=== PATIENT | female | born 1985 ===

== ENCOUNTER 2017-05-01 17:34 | Inpatient (IN) | payer SELFPAY ==
[2017-05-01 17:56] VITALS: BMI 27.3
[2017-05-01] MEDS ORDERED: Oxytocin 30 UNIT 30 UNITS/500 ML BAG IV SCH (18:00)
[2017-05-01] MEDS ORDERED: Lactated Ringer's 1,000 ML IV SCH (18:00)
[2017-05-01 18:37] LABS: BASO % 0.3 % (0.0-2.0); EOS % 0.5 % (0.0-4.0); HEMOGLOBIN 13.3 g/dL (11.0-16.0); MEAN CELL VOLUME 90.5 fL (81.0-99.0); MEAN CORPUSCULAR HGB CONC 34.3 g/dL (33.0-37.0); MEAN PLATELET VOLUME 11.1 fL (7.2-11.7); MONO # 0.4 K/uL (0.0-0.8); MONO % 5.5 % (0.0-10.0); NEUT # 5.6 K/uL (1.8-7.0); NEUT % 68.7 % (50.0-75.0); NRBC % 0.1 % (0.0-2.0); RBC 4.28 Mil/uL (3.80-5.20); RED CELL DISTRIBUTION WIDTH 13.5 % (11.5-14.5); WHITE BLOOD COUNT 8.1 K/uL (4.8-10.8)
[2017-05-01 18:43] LABS: SQUAMOUS EPITHIAL 3 /hpf (0-5); URINE BACTERIA RARE (<OCC); URINE BILIRUBIN NEGATIVE (NEGATIVE); URINE BLOOD 2+ (NEGATIVE); URINE CLARITY Clear (Clear); URINE COLOR Yellow (YELLOW); URINE GLUCOSE (UA) NORMAL (Normal); URINE LEUKOCYTE ESTERASE 1+ Leu/uL (Negative); URINE NITRATE NEGATIVE (NEGATIVE); URINE PROTEIN NEGATIVE (NEGATIVE); URINE UROBILINOGEN NORMAL mg/dL (0.2-1.0)
[2017-05-01 18:50] LABS: ALB/GLOB RATIO 0.8 (1.0-2.1); ALBUMIN 2.9 g/dL (3.5-5.0); ALT/SGPT 22 U/L (9-52); AST/SGOT 22 U/L (14-36); BLOOD UREA NITROGEN 5 mg/dL (7-17); CALCIUM 8.1 mg/dl (8.6-10.4); GFR AFRICAN-AMERICAN > 60; GFR NON-AFRICAN AMERICAN > 60
[2017-05-01] MEDS ORDERED: Oxytocin 20 units in LR 2,000 ML IV ONE (22:54)
[2017-05-01] MEDS ORDERED: Lidocaine 2% Inj (20ml) ONE (23:22)
--- NOTE | 2017-05-02 07:54 | OBPPN ---
Datetime: 05/02/2017 07:49 PP Pain Prov: Within normal limits PP Nausea Prov: Denies PP Flatus Prov: Yes PP BM Prov: No PP Heart Prov: Normal PP Lungs Prov: Normal PP Abdomen/Uterus Prov: Normal PP CVA Tenderness Prov: Normal PP Extremities Prov: Normal PP Impression Prov: Normal progression PP Plan Prov: Continue present management PP Progress Note Prov: S-patient reports that her pain is well controlled she denies nausea, vomiting, headache. chest pain,shortness of breath ambulating and voiding without difficulty O-VSS Afebrile Fundus firm and below umbilicus extremities no calf tenderness A/P Patient s/p vaginal delivery PPD1 doing well -continue routine PP care Vital Signs Provider PP: Reviewed; Within Normal Limits
[2017-05-02 08:02] VITALS: RESP 18
[2017-05-02 08:12] LABS: BASO % 0.2 % (0.0-2.0); EOS % 0.1 % (0.0-4.0); HEMOGLOBIN 12.2 g/dL (11.0-16.0); LYMPH # 1.9 K/uL (1.0-4.3); LYMPH % 16.6 % (20.0-40.0); MEAN CELL VOLUME 89.9 fL (81.0-99.0); MEAN CORPUSCULAR HEMOGLOBIN 30.3 pg (27.0-31.0); MEAN CORPUSCULAR HGB CONC 33.7 g/dL (33.0-37.0); MEAN PLATELET VOLUME 11.4 fL (7.2-11.7); MONO # 0.6 K/uL (0.0-0.8); MONO % 5.6 % (0.0-10.0); NEUT # 8.8 K/uL (1.8-7.0); NEUT % 77.5 % (50.0-75.0); RBC 4.03 Mil/uL (3.80-5.20); RED CELL DISTRIBUTION WIDTH 13.4 % (11.5-14.5); WHITE BLOOD COUNT 11.3 K/uL (4.8-10.8)
[2017-05-03 08:04] VITALS: BP 100/72; PULSE 68; TEMP 97.2
[2017-05-03] MEDS ORDERED: Influenza Vaccine 60 mcg/0.5 mL SYR (4YR UP) IM ONE (09:12)
--- NOTE | 2017-05-03 09:39 | OBADHP ---
Datetime: 05/01/2017 17:02 IP Adm Impression Other: For Induction of labor Admit Comment, IP Provider: 32yo with IUP at 40.6wks sent in here today for a scheduled renetta ction of labor. Pt has OB care at [facility] and reports uncomplicated course. She denies any VB or LOF. She reports good movements. GBS - Negative [place]- Irregular FHR- 130s with a category 1 tracing Cx: 1-2//-2 Assessment: IUP at 40.6wks For Induction of labor GBS Negative. Plan: Admit to LND Cytotec for cervical ripening Monitor the progress of labor. Pelvic Type - PN: Adequate Extremities - PN: Normal Abdomen - PN: Normal Back - PN: Normal Breast - PN: Normal Lungs - PN: Normal Heart - PN: Normal Thyroid - PN: Normal Neurologic - PN: Normal HEENT - PN: Normal General - PN: Normal Presentation-Admit: Vertex FHR - Baseline A Provider: 130 Membranes, Provider: Intact Contraction Comments Provider: Irregular Comments, ACOG Physical Exam: Abd: Soft, NT, BS - present Gestation - Est Wks by US: 40.6 Vital Signs Provider: Reviewed IP Chief Complaint: Scheduled induction of labor NICHD Variability Prov Fetus A: Moderate 6-25bpm NICHD Accel Fetus A IP Provider: [id number] FHR Category Provider Fetus A: Category I NICHD Decel Fetus A IP Provider: None Dilatation, Provider: 1-2 Effacement, Provider: 50 Station, Provider: -2 Genitourinary Exam: Normal DTRs - PN: Normal IP Adm Impression: Term, intrauterine ; No Active Labor IP Admit Plan: Admit to unit; Initiate labor induction protocol
--- NOTE | 2017-05-03 09:39 | OBDS ---
DELIVERY PERSONNEL Delivery Doctor: Myrna Calderon MD Traveling Sales Representative: Modesta Gill RN MATERNAL INFORMATION Delivery Anesthesia: None Medications in Delivery: pitocin Estimated Blood Loss (ml): 250 Placenta Cultured: No Maternal Complications: None RN Comments: baby girl delivered via . apgars 9/9 baby stable and remains with mother. Provider Comments: Uncomplicated spontaneous vaginal delivery of a viable female infant with BW of 3485gms and scores of 9 and 9 delivered over a 2nd degree laceration which was repaired with 2- 0 chromic under local anesthesia and with good cosmesis. LABOR SUMMARY EDC: 04/27/2017 00:00 No. Babies in Womb: 1 Attempted: No Labor Anesthesia: None LABOR INFORMATION Reason for Induction: Postterm (Annotations: Data stored by N on behalf of user) Onset of Labor: 05/01/2017 20:00 Complete Dilatation: 05/01/2017 23:13 Cervical Ripening Agents: Cytotec @ Oxytocin: N/A Group B Beta Strep: Negative Antibiotics # of Doses: 0 Antibiotics Time of Last Dose: 0 Steroids Given: None Reason Steroids Not Administered: Not Applicable MEMBRANES Membranes Rupture Method: Spontaneous Rupture of Membranes: 05/01/2017 22:20 Length of Rupture (hrs): 0.93 Amniotic Fluid Color: Clear Amniotic Fluid Amount: Small Amniotic Fluid Odor: Normal STAGES OF LABOR Stage 1 hrs: 3 Stage 1 min: 13 Stage 2 hrs: 0 Stage 2 min: 3 Stage 3 hrs: 0 Stage 3 min: 9 Total Time in Labor hrs: 3 Total Time in Labor min: 25 VAGINAL DELIVERY Episiotomy: None Laceration Extension: N/A Laceration Type: None Laceration Repair: Yes Laceration Repair Note: 2nd degree perineal laceration repaired with 2-0 chromic under local anesthe kristal with 1% lidocaine and with good cosmesis. Initial Vag Sponge Count: 10 Final Vag Sponge Count: 10 Initial Vag Sharps Count: 2 Final Vag Sharps Count: 2 Sponge Count Correct: Yes Sharps Count Correct: Yes BABY A INFORMATION Infant Delivery Date/Time: 05/01/2017 23:16 Method of Delivery: Vaginal Born in Route : No : N/A Forceps: N/A Vacuum Extraction: N/A Shoulder Dystocia : No SHOULDER DYSTOCIA BABY A Infant Delivery Date/Time: 05/01/2017 23:16 PRESENTATION/POSITION BABY A Presentation: Cephalic Cephalic Presentation: Vertex Breech Presentation: N/A PLACENTA INFORMATION BABY A Placenta Delivery Time : 05/01/2017 23:25 Placenta Method of Delivery: Spontaneous Placenta Status: Delivered SCORES BABY A Heart Rate 1 min: >100 bpm Resp Effort 1 min: Good Cry Reflex Irritability 1 min: Cough or Sneeze or Pulls Away Muscle Tone 1 min: Active Motion Color 1 min: Body [place], Extremities Blue Resuscitation Effort 1 min: N/A SCORE 1 MIN: 9 Heart Rate 5 min: >100 bpm Resp Effort 5 min: Good Cry Reflex Irritability 5 min: Cough or Sneeze or Pulls Away Muscle Tone 5 min: Active Motion Color 5 min: Body [place], Extremities Blue Resuscitation Effort 5 min: N/A SCORE 5 MIN: 9 INFANT INFORMATION BABY A Gestational Age at Delivery: 40.6 Gestational Status: Term Infant Outcome : Liveborn Infant Condition : Stable Sex: Female IDENTIFICATION/MEDS BABY A ID Band Number: [id number] ID Band Location: Left Leg; Left Arm Sensor Applied: Yes Sensor Number: [id number] Sensor Location : Cord Clamp Vitamin K Given : Aquamephyton 1 mg IM; Left Thigh Erythromycin Given: Given Both Eyes WEIGHT/LENGTH BABY A Birthweight (gms): 3485 Infant Weight (lb): 7 Infant Weight (oz): 11 Infant Length Inches: 19.00 Length cms: 48.3 CORD INFORMATION BABY A No. Cord Vessels: 3 Nuchal Cord : N/A Nuchal Cord Other: 0 True Knot: 0 Cord Blood Taken: Yes Suction: Mouth; Nose ASSESSMENT BABY A Infant Complications: None Physical Findings at Delivery: Within Normal Limits Infant Respirations: Appears Normal Power Transformer Repair Supervisor/ALS Called : No Infant Care By: ERIKA RNC Transferred To: Remains with Mother
[2017-05-03 17:05] VITALS: O2SAT 99
--- NOTE | 2017-05-03 19:04 | OBDCSUM ---
Datetime: 05/03/2017 09:43 Discharged to, Provider: Home Follow up at, Provider: [facility] Disch Instr Activity: Normal activity Disch Instr Diet: Regular Discharge Instructions, Provider: Routine instructions given Discharge Diagnosis, Provider: Postterm Delivery Discharge Time: 05/03/2017 12:55 Follow up in weeks, Provider: 6 weeks Disch Referrals: None Contraception discussed, Prov: Yes Disch Activity Restrictions: No lifting; Minimize stair-climbing; No sexual activity; Nothing in vag victorina - [place], tampons, douche Discharge Diagnosis Prov Other: Contraception counseling Contraception after Delivery: Control Pill/Patch Datetime: 05/03/2017 08:09 Discharged to, Provider: Home Follow [facility], [facility] Disch Instr Diet: Regular Discharge Instructions, Provider: Routine instructions given Discharge Diagnosis, Provider: Term Delivered Discharge Time: 05/03/2017 08:10 Follow up in weeks, Provider: 6 weeks Disch Activity Restrictions: No sexual activity; Nothing in vagina - [place], tampons, douche Discharge Comment, Provider: Pelvic rest x 6 weeks
--- NOTE | 2017-05-03 19:07 | OBPPN ---
Datetime: 05/03/2017 08:00 PP Pain Prov: Within normal limits PP Nausea Prov: Denies PP Flatus Prov: Yes PP BM Prov: No PP Impression Prov: Normal progression PP Plan Prov: Continue present management; Discharge PP Progress Note Prov: Patient seen and examined at bedside. Per nursing no acute events overnight. Patient is doing well, pain is controlled. Lochia is mild. Ambulating and tolerating diet. Passing fl atus, denies BM. Urinating without difficulty. Breast feeding. Denies headaches, dizziness, cp, palpi tations, sob, urinary symptoms. VS: BP 117/78 HR 74 Temp 97.6 Gen: AAOx3 CV: RRR Lungs: CTA B/L Abd: Soft, fundus firm at umbilicus Ext: No clubbing, cyanosis, edema; no calf tenderness Labs: 8.1>13.3/38.7<164 11.3>12.2/36.2<130 O positive Rubella immune A/P: 32 year old at 40w4d s/p with second degree perineal laceration PPD#2 -Stable, afebrile -Pain control: Motrin prn -Encourage ambulation and hydration -Encourage -Continue routine care -Aniticpate d/c home today: pelvic rest x 6 weeks, f/u with clinic in 6 weeks -Plan discussed with Dr Carson Scott DO PGY-1 Attending Note: Patient seen and evaluated by me with the Resident. I agree with the above. Re: co ntraception - patient indicates an interest in oral contraception. Otherwise, clinically stable. Plan: 1) as above. Vital Signs Provider PP: Reviewed; Within Normal Limits
== END 2017-05-03 12:55 | disposition home or self-care (01) | DRG 775 ==
LOC: C.4D 17:34 → C.4M 05-02 01:33
PROVIDERS: ADMIT Obstetrics & Gynecology; ATTEND Obstetrics & Gynecology
PROC: 10E0XZZ Delivery of Products of Conception, External Approach (ICD-10-PCS; principal; 2017-05-01)
PROC: 0KQM0ZZ Repair Perineum Muscle, Open Approach (ICD-10-PCS; 2017-05-01)
PROC: 3E0P7VZ Introduction of Hormone into Female Reproductive, Via Natural or Artificial Opening (ICD-10-PCS; 2017-05-01)
DX: O48.0 Post-term pregnancy (principal); O70.1 Second degree perineal laceration during delivery; Z3A.40 40 weeks gestation of pregnancy; Z37.0 Single live birth